=== PATIENT | male | born 1965 | race African-American/Black ===

== ENCOUNTER 2018-02-10 17:39 | Emergency (ER) | payer OTHER ==
[~2018-02-10] VITALS: Ht 180.3 cm; Wt 75.7 kg
[2018-02-10 17:45] VITALS: BP 110/72
[2018-02-10] MEDS ORDERED: TRUVADA 200 MG1 EAC1 ORAL (17:45)
[2018-02-10] MEDS ORDERED: VIREAD300 MG ORAL (17:45)
[2018-02-10] MEDS ORDERED: NEVIRAPINE200 MG PO (17:45)
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
[2018-02-10] MEDS ORDERED: VOLTAREN100 G1 TP (19:07)
[2018-02-10] MEDS ORDERED: NAPROXEN500 M2 ORAL (19:07)
--- NOTE | 2018-02-10 19:09 | NUR ---
ED Nurse Note: REPORT GIVEN TO VINOD YING.
[2018-02-10 19:14] VITALS: BP 113/76
--- NOTE | 2018-02-10 19:15 | NUR ---
ED Nurse Note: PT SITTING PEACEFULLY IN CHAIR IN NAD. AOX4. PRESCRIPTIONS AND DISCHARGE PAPERWORK EXPLAINED TO PT. PT VERBALIZES UNDERSTANDING AND DENIES ANY QUESTIONS AT THIS TIME. PRESCRIPTIONS AND DISCHARGE PAPERWORK GIVEN TO PT AND ID WRISTBAND REMOVED. PT WALKED OUT OF ER WITH STEADY GAIT AND ALL BELONGINGS.
--- NOTE | 2018-02-11 10:59 | Diagnostic Imaging Report ---
Indication: Pain, trauma Technique: 3 views of the lumbar spine Comparison: None Findings: Bony alignment is normal. Vertebral body heights are preserved. Disc spaces are preserved. Pedicles are intact. Sacral arches are preserved Impression: Negative
--- NOTE | 2018-02-11 11:01 | Diagnostic Imaging Report ---
Indication: Pain, trauma Technique: 3 views of the cervical spine Comparison: none Findings: No prevertebral soft tissue swelling. There is degenerative disc narrowing involving most of the levels, sparing only C2-3. There is some degenerative remodeling of the C5 and C6 vertebral bodies. Vertebral body heights are otherwise preserved. There is slight straightening of the normal cervical lordosis, otherwise normal bony alignment. No acute fractures. Impression: Degenerative changes. No acute bony trauma
== END 2018-02-10 19:16 | disposition home or self-care (01) ==
LOC: EMR 18:03
DX: S13.4XXA Sprain of ligaments of cervical spine, initial encounter (principal); S39.012A Strain of muscle, fascia and tendon of lower back, initial encounter; V43.52XA Car driver injured in collision with other type car in traffic accident, initial encounter; Y92.410 Unspecified street and highway as the place of occurrence of the external cause
CPT/HCPCS: 72020; 72040; 99284